=== PATIENT | female | born 1950 | race Caucasian/White ===

== ENCOUNTER 2023-12-25 15:00 | Inpatient (IN) | payer SELFPAY ==
--- NOTE | ~2023-12-25 | XR_ITS ---
EXAMINATION: XR FOOT, LEFT CLINICAL INFORMATION: Pain after a fall COMPARISON: None available. TECHNIQUE: 2 views of the left foot. FINDINGS: The bones and soft tissues are normal. No fracture. Alignment is anatomic. Joint spaces are maintained. XR/XR foot LT min 3V IMPRESSION: Normal left foot.
--- NOTE | ~2023-12-25 | XR_ITS ---
EXAMINATION: XR KNEE, LEFT CLINICAL INFORMATION: History of knee pain, fall. Fracture ? COMPARISON: None available. TECHNIQUE: Four views of the left knee. FINDINGS: Alignment is normal at the tibiofemoral compartments and joint spaces are maintained. There is an acute, comminuted fracture in the middle third of the patella and approximately 0.7 cm of distraction between the upper and lower pole fragments. Peripatellar soft tissues are swollen. Trace amount of fluid is present in the suprapatellar compartment of the knee joint. XR/XR knee LT 4V IMPRESSION: Acute comminuted, distracted fracture of the patella.
--- NOTE | ~2023-12-25 | XR_ITS ---
EXAMINATION: XR SHOULDER, RIGHT CLINICAL INFORMATION: Shoulder pain after fall COMPARISON: None available. TECHNIQUE: Two views of the right shoulder. FINDINGS: The clavicle and acromioclavicular joint are normal. An acute fracture through the region of the surgical neck of the humerus is mildly displaced. There is approximately 0.5 cm anteromedial displacement of the humeral shaft fragment compared to the head fragment. The humeral head fragment remains in normal articulation with the glenoid. There is mild anterior apex angulation at the humeral neck fracture site. The visualized right-sided ribs are intact. No pneumothorax or pleural effusion. XR/XR shoulder RT min 2V IMPRESSION: Mildly displaced fracture of the surgical neck of the humerus.
--- NOTE | ~2023-12-25 | FL_ITS ---
EXAMINATION: XR FLUOROSCOPY WITH IMAGES CLINICAL INFORMATION: ORIF left patella. COMPARISON: Left knee radiographs dated 01/05/2024. TECHNIQUE: Fluoroscopy Supervised By: Dr. Mickey Reyes. Fluoroscopy Time: 0.4 minutes. Cumulative Dose: 1.76 mGy. DAP: 0.0306 Gycm2. Images: 2. FINDINGS: The submitted images show 2 K wires transfixing the comminuted patellar fracture. FL/FL guidance in OR IMPRESSION: Intraoperative fluoroscopic guidance is provided during left patellar ORIF. Please see the patient's Operative Report for full procedural details.
[2023-12-25 15:16] VITALS: BP 131/74; PULSE 78; RESP 16; TEMP 36.2; O2SAT 95; BMI 26.0
--- NOTE | 2023-12-25 15:21 | ED_ITS ---
HPI - General Adult General Chief complaint: Fall Stated complaint: Fall today - knee & shoulder injury Time Seen by Provider: 12/25/23 17:39 Source: patient and family Mode of arrival: ambulatory Limitations: no limitations History of Present Illness HPI narrative: 73-year-old female with no medical history on no medications presents to the ER for evaluation of left knee pain and right shoulder pain after she tripped and fell just prior to arrival. She has been unable to bear weight on her left leg since the fall due to pain in the knee. she put her right hand out to catch herself, sustaining abrasions to the right palm and falling onto the right shoulder. She has had severe pain in the right shoulder with limited range of motion and severe pain in the left knee unable to bear weight or bend it. She did not hit her head or lose consciousness. She has not on any anticoagulation. No chest pain, abdominal pain. No preceding dizziness or other symptoms prior to the fall MD complaint: Left knee pain and right shoulder pain status post fall Onset (ago): hour(s) Location: left, right, upper extremity and lower extremity Radiation: non-radiation Severity: severe Quality: aching Pain Consistency: constant Relieving factors: immobilization Exacerbating factors: movement Associated symptoms: denies other symptoms Treatments prior to arrival: none Related Data Allergies Allergy/AdvReac Type Severity Reaction Status Date / Time Penicillins AdvReac Dizziness Verified 12/25/23 15:19 Review of Systems 2 Review of Systems: Yes all other systems are reviewed and are negative [facility] Social History Social History Household Members: Significant Other Housing: Apartment Do you presently have visiting nurse or other home services: No Alcohol intake: current Alcohol intake frequency: 0-2 drinks per day Alcohol type: beer and hard liquor Patient Tobacco Use Status: Former Tobacco user Quit Date: 4 years ago Tobacco use type: Cigarette e-Cigarette/Vaping Use: Former Use Physical Exam ED Vital Signs: Vital Signs - 24 hr 12/25/23 15:16 12/25/23 19:26 Temperature 97.2 F 97.9 F Pulse Rate 78 71 Respiratory Rate 16 18 Blood Pressure 131/74 150/79 H Pulse Oximetry 95 98 Oxygen Delivery Method Room Air Room Air BMI result Body Mass Index 26.0 Appearance: Alert. Oriented X3. No acute distress. Head: normocephalic, atraumatic. Eyes: Pupils equal, round and reactive to light. ENT: Pharynx normal. No tonsillar swelling or exudate. Neck: Normal inspection. Neck supple. CVS: Normal heart rate and rhythm. Pulses normal. Respiratory: No respiratory distress. Breath sounds normal. Abdomen: Soft and nontender. +BS x4 Skin: Skin warm and dry. Normal skin color. Normal skin turgor. No rashes. Extremities: left knee with moderate swelling, high-riding patella with exquisite tenderness. defect in the inferior aspect of the patella. Unable to fully extend the leg or lift it off of the stretcher. Tenderness of the left great toe. Left foot is warm and well perfused with 2+ DP pulse. Right arm held in flexion and adduction. Proximal humerus tender. Limited range of motion of the right shoulder. 2+ radial pulse, neurovascularly intact. Neuro/psych: Oriented X 3. nonfocal. Course Course Course Narrative: RME: 73-year-old female presents to ED for right shoulder and left knee pain. Patient states she tripped and fell on the sidewalk. Patient denies hitting head or loss of consciousness. Physical exam positive for right shoulder tenderness and left knee swelling. X-rays ordered Medications Administered Generic Name Dose Route Start Last Admin Trade Name Freq PRN Reason Stop Dose Admin Acetaminophen 650 mg 12/25/23 20:38 12/28/23 07:06 Acetaminophen 325 Mg Tablet PO 650 mg Q6H PRN Administration Pain, Mild (Pain Scale 1-3) Morphine Sulfate 4 mg 12/25/23 21:09 12/26/23 07:48 Morphine Sulfate 4 Mg/Ml Cartridge IVPUSH 4 mg Q4H PRN Administration Pain, Severe (Pain Scale 7-10) Protocol Ondansetron HCl 4 mg 12/25/23 20:38 12/26/23 07:48 Ondansetron Hcl 4 Mg/2 Ml Vial IVPUSH 4 mg Q8H PRN Administration Nausea and Vomiting Sodium Chloride 3 ml 12/26/23 00:00 12/28/23 07:07 0.9 % Sodium Chloride Flush 3 Ml Syringe IVFLUSH 3 ml QSHIFT [place] Administration Discontinued Medications Generic Name Dose Route Start Last Admin Trade Name Freq PRN Reason Stop Dose Admin Acetaminophen 975 mg 12/25/23 18:27 12/25/23 19:08 Acetaminophen 325 Mg Tablet PO 12/25/23 18:28 975 mg ONCE ONE Administration Acetaminophen 1,000 mg in 100 mls @ 400 mls/hr 12/26/23 10:16 12/26/23 11:31 Ofirmev IV 12/26/23 10:30 Infused ONCE ONE Infusion Morphine Sulfate 4 mg 12/25/23 20:06 12/25/23 21:42 Morphine Sulfate 4 Mg/Ml Cartridge IVPUSH 12/25/23 20:07 4 mg ONCE ONE Administration Protocol Medical Decision Making Medical Decision Making [facility] Narrative: 73-year-old female with no medical history presents to the ER for evaluation of left knee pain and right shoulder pain after she had a mechanical fall. She tripped and fell onto her right shoulder and directly onto the left knee. Imaging performed which is showing a fracture of the left patella and right humeral neck. Awaiting official read from the radiologist. Images were sent to Orthopedics who is recommending medical admission for polytrauma. Plan for surgical intervention. She will need clearance for the operating room. Lab workup ordered. Will place patient and sling and knee immobilizer in the meantime. Signed out to Katelyn MORGAN who will f/u imaging and final dispo for admission. Differential Diagnosis Differential Diagnoses: The differential diagnosis associated with the presentation includes Shoulder dislocation, humerus fracture, scapular fracture, clavicular fracture, AC joint sprain / separation. Patellar fracture, tibial plateau fracture, distal femur fracture, knee sprain, knee strain, compartment syndrome Admission/Observation Consideration of admission/observation: Escalation of care including admission/observation considered will require surgical intervention Consult Healthcare Provider Management of the patient was discussed with: [employer] Inspector Mattie from orthopedics recommending admission to the hospital for polytrauma, admission to medicine service with plan for surgical intervention early next week once swelling has improved. Lab Data [facility] Lab Attestation statement: I reviewed the patient's lab results. 12/26/23 05:19 12/26/23 05:19 Labs: Lab Results 12/25/23 Range/Units 18:54 WBC 10.7 (4.8-10.8) X10*3/uL RBC 4.46 (4.20-5.50) X10*6/uL Hgb 13.2 (12.0-16.0) g/dl Hct 42.5 (37.0-47.0) % MCV 95.3 (80.0-98.0) fL MCH 29.6 (27.0-33.0) pg MCHC 31.1 (31.0-35.0) g/dl RDW 14.3 (11.0-16.0) % Plt Count 226 (160-400) X10*3/uL MPV 11.7 (9.4-12.3) fL Immature Gran % (Auto) 0.7 H (0.0-0.4) % Neut % (Auto) 77.1 H (45-73) % Lymph % (Auto) 14.5 L (20-40) % [place] % (Auto) 5.8 (2-11) % Eos % (Auto) 0.8 (0-4) % Baso % (Auto) 1.1 (0-2) % Lymph # (Auto) 1.6 (1.2-4.9) X10*3/uL [place] # (Auto) 0.6 (0.1-1.2) X10*3/uL Eos # (Auto) 0.1 (0.0-0.4) X10*3/uL Baso # (Auto) 0.1 (0.0-0.2) X10*3/uL Abs Immat Gran (auto) 0.07 H (0.00-0.03) X10*3/uL Absolute Neuts (auto) 8.3 (2.0-8.3) x10*3/uL Absolute Nucleated RBC 0.000 (0.0-0.012) X10*3/uL Nucleated RBC % (auto) 0.0 (0.0-0.2) /100WBC Smear Tech's Comments VERIFIED Sodium 143 (135-145) mmol/L Potassium 4.0 (3.3-5.1) mmol/L Chloride 110 H (96-108) mmol/L Carbon Dioxide 18 L (22-29) mmol/L Anion Gap 19 (12-20) BUN 15 (9-16) mg/dL Creatinine 0.81 (0.5-1.4) mg/dL Estim Creat Clear Calc 61.9 Estimated GFR > 60 Random Glucose 114 (60-115) mg/dL Calcium 10.3 H (8.4-10.2) mg/dL Magnesium 2.3 (1.6-2.6) mg/dL Total Bilirubin 0.3 (0.0-1.0) mg/dL Direct Bilirubin 0.1 (0.0-0.5) mg/dL AST 18 (5-31) U/L ALT 16 (0-31) U/L Alkaline Phosphatase 70 (39-117) U/L Total Protein 7.4 (6.5-8.0) g/dL Albumin 4.4 (3.5-5.0) g/dL Independent Interpretation I performed an independent interpretation of an: Plain X-Ray Interpretation: X-ray of the knee with significant transverse patellar fracture, right humeral neck fracture. Independent Historian Clinical information obtained from an independent historian. History obtained from or confirmed by: Spouse Prescription Management I considered prescription management with: Pain Medication Social Determinants Patient?s care significantly limited by Social Determinants of Health including: Other Social Determinant of Health ( Patient lives in [place]) Critical Care Time Critical Care Time Critical Care Time: Yes Total Critical Care Time: 31 Attestation: I have personally provided critical care time exclusive of time spent on separately billable procedures. Time includes review of lab data, radiology results, discussion with consultants, and monitoring for potential decompensation. Intervention performed as documented. Discharge Plan Discharge Clinical Impression: Patellar fracture Qualifiers: Encounter type: initial encounter Fracture type: closed Fracture morphology: t ransverse Fracture alignment: displaced Laterality: left Qualified Code(s): S 82.032A - Displaced transverse fracture of left patella, initial encounter for closed fracture Fracture, humerus Qualifiers: Encounter type: initial encounter Humerus Location: proximal Fracture type: c losed Patient Disposition: Admitted As Inpatient Interventions: Admission Worksheet (ED) Last Done: 12/26/23 14:06 Discharge Date/Time: 12/26/23 15:40
[2023-12-25] MEDS: Acetaminophen 325 MG TABLET 975 MG PO (19:08)
[2023-12-25 19:26] VITALS: BP 150/79; PULSE 71; RESP 18; TEMP 36.6; O2SAT 98
[2023-12-25 19:32] LABS: Alanine Aminotransferase 16 U/L (0-31); Albumin Level 4.4 g/dL (3.5-5.0); Alkaline Phosphatase 70 U/L (39-117); Anion Gap 19 (12-20); Aspartate Amino Transferase 18 U/L (5-31); Bilirubin Direct 0.1 mg/dL (0.0-0.5); Bilirubin Total 0.3 mg/dL (0.0-1.0); Blood Urea Nitrogen 15 mg/dL (9-16); Calcium 10.3 mg/dL (8.4-10.2); Carbon Dioxide 18 mmol/L (22-29); Chloride 110 mmol/L (96-108); Creatinine Clr Calc Pharmacy 61.9; Estimated Glomerular Filt Rate > 60; Glucose Random 114 mg/dL (60-115); Magnesium 2.3 mg/dL (1.6-2.6); Sodium 143 mmol/L (135-145); Total Protein 7.4 g/dL (6.5-8.0)
[2023-12-25 19:43] LABS: Basophils Absolute Auto 0.1 X10*3/uL (0.0-0.2); Basophils Percent Auto 1.1 % (0-2); Eosinophils Absolute Auto 0.1 X10*3/uL (0.0-0.4); Eosinophils Percent Auto 0.8 % (0-4); Hematocrit 42.5 % (37.0-47.0); Hemoglobin 13.2 g/dl (12.0-16.0); Imm Gran Abs Auto 0.07 X10*3/uL (0.00-0.03); Imm Gran Pct Auto 0.7 % (0.0-0.4); Lymphocytes Absolute Auto 1.6 X10*3/uL (1.2-4.9); Lymphocytes Percent Auto 14.5 % (20-40); MANUAL DIFF FLAG SCAN; Mean Corpuscular HGB Conc 31.1 g/dl (31.0-35.0); Mean Corpuscular Hemoglobin 29.6 pg (27.0-33.0); Mean Corpuscular Volume 95.3 fL (80.0-98.0); Mean Platelet Volume 11.7 fL (9.4-12.3); Monocytes Absolute Auto 0.6 X10*3/uL (0.1-1.2); Monocytes Percent Auto 5.8 % (2-11); Neutrophils Absolute Auto 8.3 x10*3/uL (2.0-8.3); Neutrophils Percent Auto 77.1 % (45-73); PLT CLUMP 1; Red Blood Count 4.46 X10*6/uL (4.20-5.50); Red Cell Distribution Width 14.3 % (11.0-16.0); SCAN SMEAR FLAG 1
[2023-12-25 19:45] LABS: Platelet Count 226 X10*3/uL (160-400); White Blood Count 10.7 X10*3/uL (4.8-10.8)
[2023-12-25 20:05] LABS: SLIDE REVIEW VERIFIED
--- NOTE | 2023-12-25 20:19 | MHC.EDTECH ---
This tech took over care of patient,at 1900 hourly rounds completed,patient was undressed,and placed in hospital attire,Belongings list completed and copy placed in chart
--- NOTE | 2023-12-25 20:39 | P.HPHOSP_ITS ---
History of Present Illness Date of Service: 12/25/23 Chief Complaint: Fall This is a 73-year-old female with no pertinent past medical history and not on prescription medications who presents to the emergency department for evaluation after a fall. Patient states she was walking on the sidewalk when she tripped and fell. Patient thinks that her foot got stuck into something and hence she tripped and fell. Did not lose consciousness prior to the fall. No chest discomfort or palpitations. No rhythmic jerking movement of extremities. No head strike. Patient fell on her left lower extremity and used her right upper extremity to stabilize before fall. Reports painful movement of right upper extremity and painful knee movement since the fall. No fever, chills, chest discomfort, palpitations, shortness of breath, abdominal pain, changes in urinary or bowel habits. In the emergency department, imaging with mildly displaced fracture of the surgical neck of humerus and acute comminuted distracted fracture of the patella Review of Systems 2 Constitutional: Constitutional: Reports no additional constitutional complaints Cardiovascular: Cardiovascular: Reports no additional cardiovascular complaints Respiratory: Respiratory: Reports no additional respiratory complaints Gastrointestinal: Gastrointestinal: Reports no additional gastrointestinal complaints Genitourinary: Genitourinary: Reports no additional female genitourinary complaints Musculoskeletal: Musculoskeletal: Reports arthralgias and Reports joint swelling PMFSH Pertinent family history: No family history of early CAD Social History Alcohol intake: current Alcohol intake frequency: 0-2 drinks per day Alcohol type: beer and hard liquor Meds Allergies Allergy/AdvReac Type Severity Reaction Status Date / Time Penicillins AdvReac Dizziness Verified 12/25/23 15:19 Physical Exam 2 Vital Signs and Narrative: Vital Signs: Last Vital Signs Temp 97.9 F 12/25/23 19:26 Pulse 71 12/25/23 19:26 Resp 18 12/25/23 19:26 BP 150/79 H 12/25/23 19:26 Pulse Ox 98 12/25/23 19:26 O2 Del Method Room Air 12/25/23 19:26 BMI result Body Mass Index 26.0 Middle-aged female lying in bed in no distress Neck supple, no JVD Regular rate and rhythm, S1-S2 heard Regular breath sounds bilaterally, no wheezing or crackles appreciated Abdomen soft nontender, no guarding, no rigidity Patient is awake, alert and oriented to self, place, time and person ; no focal motor deficit Psych: Normal mood Right upper extremity in sling Results Labs 12/25/23 18:54 12/25/23 18:54 Labs: Laboratory Results - last 24 hr 12/25/23 18:54 MCV 95.3 MCH 29.6 MCHC 31.1 RDW 14.3 Plt Count 226 MPV 11.7 Immature Gran % (Auto) 0.7 H Neut % (Auto) 77.1 H Lymph % (Auto) 14.5 L [place] % (Auto) 5.8 Eos % (Auto) 0.8 Baso % (Auto) 1.1 Lymph # (Auto) 1.6 [place] # (Auto) 0.6 Eos # (Auto) 0.1 Baso # (Auto) 0.1 Abs Immat Gran (auto) 0.07 H Absolute Neuts (auto) 8.3 Absolute Nucleated RBC 0.000 Nucleated RBC % (auto) 0.0 Smear Tech's Comments VERIFIED Anion Gap 19 Estim Creat Clear Calc 61.9 Estimated GFR > 60 Random Glucose 114 Calcium 10.3 H Magnesium 2.3 Total Bilirubin 0.3 Direct Bilirubin 0.1 AST 18 ALT 16 Alkaline Phosphatase 70 Total Protein 7.4 Albumin 4.4 Assessment and Plan (1) Fracture, humerus: Qualifiers: Encounter type: initial encounter Fracture type: closed Humerus Location: proximal Status: Acute (2) Patellar fracture: Qualifiers: Encounter type: initial encounter Fracture alignment: displaced F racture morphology: transverse Fracture type: closed Laterality: left Q ualified Code(s): S82.032A - Displaced transverse fracture of left patella, initial encounter for closed fracture Status: Acute Plan This is a 73-year-old female with no pertinent past medical history and not on prescription medications who presents to the emergency department for evaluation after a fall. #. Acute comminuted fracture of the patella and displaced fracture of the surgical neck of humerus due to mechanical fall: IV opioids p.r.n. for analgesia. Consulting Orthopedic surgery #. Preoperative risk: RCRI score 0 DVT prophylaxis: Mechanical Full code Admit as inpatient and will require two night minimum hospital stay for evaluation of patellar and humerus fracture (as above), which is not possible in a lesser acute setting. Specialist consult pending Quality Stroke Does the patient have a stroke diagnosis?: No VTE Prior VTE?: No VTE Risk Level:: Medical - moderate - high VTE Device Contraindication: N/A - Device Ordered VTE Drug Contraindication: Treatment Not Tolerated
--- NOTE | 2023-12-25 21:39 | MHC.CM.ED ---
Addendum entered by Beronica Beatty 12/25/23 22:11: According to OHIP website from [place], patient will need an itemized bill and medical records to submit to her insurance company. Original Note: CM met with admitted patient with bed assignment pending. Pt is a [place] Citizen. She lives in [facility] [place] and [place] in the [facility]. Pt's significant other is from [place] and they were visiting family when patient tripped and feel. She has a fx L patella and R humeral head fx. She will require surgical intervention. She has OHIP insurance from [employer] She has emergency services coverage for out of the country care. Reviewed website with patient regarding emergency inpatient services covered and how to get reimbursed for payments made. Explained to patient that referral to Financial services will be made. Pt lives with her S.O. Gonsalo Dahl ([phone]). Pt has negative medical hx and takes no mediations. D/C plan is unsure at this time pending ortho recommendations. Pt would like to be able to go home to [place] and have any needed rehab there. Patient states she does not have an equivalent of our HCP in [place], but if she cannot speak for herself, she would have her S.O. Gonsalo Dahl speak for her. CM is unsure at this time if a [place] HCP can be made if one is not a citizen of this country. Will e-mail Leann Shaw and CM can complete a HCP while patient is inpatient if legally able. Patient has plane tickets booked to return to [place] on January 16. CM will follow for discharge planning.
[2023-12-25 21:42] VITALS: RESP 18
[2023-12-25] MEDS: Morphine Sulfate 4 MG/ML CARTRIDGE IVPUSH (21:42)
[2023-12-25 23:03] VITALS: BP 102/55; PULSE 64; RESP 16; TEMP 36.1; O2SAT 94
--- NOTE | 2023-12-26 | ECG_ITS ---
Test Reason : PRESURGERY EVAL Blood Pressure : / mmHG Vent. Rate : 070 BPM Atrial Rate : 070 BPM P-R Int : 122 ms QRS Dur : 080 ms QT Int : 412 ms P-R-T Axes : 064 091 036 degrees QTc Int : 444 ms Normal sinus rhythm Rightward axis Borderline ECG No previous ECGs available Referred By: Bryant Anderson Electronically Signed By:Titi Rincon
[2023-12-26] MEDS: 0.9 % Sodium Chloride Flush 3 ML SYRINGE IVFLUSH ×4 (02:45→21:30)
[2023-12-26] MEDS: Acetaminophen 325 MG TABLET 650 MG PO ×2 (03:02→21:25)
--- NOTE | 2023-12-26 03:02 | PC.NURSE ---
This RN offered patient morphine 4 mg IV push for 7/10 pain in right shoulder and left knee, patient refused requesting Tylenol 650 mg PO.
[2023-12-26 05:34] LABS: MANUAL DIFF FLAG NO
[2023-12-26 05:43] LABS: Basophils Absolute Auto 0.1 X10*3/uL (0.0-0.2); Basophils Percent Auto 0.8 % (0-2); Eosinophils Absolute Auto 0.1 X10*3/uL (0.0-0.4); Eosinophils Percent Auto 1.3 % (0-4); Hematocrit 34.3 % (37.0-47.0); Hemoglobin 11.1 g/dl (12.0-16.0); Imm Gran Abs Auto 0.04 X10*3/uL (0.00-0.03); Imm Gran Pct Auto 0.5 % (0.0-0.4); Lymphocytes Absolute Auto 1.9 X10*3/uL (1.2-4.9); Lymphocytes Percent Auto 25.3 % (20-40); Mean Corpuscular HGB Conc 32.4 g/dl (31.0-35.0); Mean Corpuscular Hemoglobin 29.8 pg (27.0-33.0); Mean Platelet Volume 10.8 fL (9.4-12.3); Monocytes Absolute Auto 0.8 X10*3/uL (0.1-1.2); Monocytes Percent Auto 10.3 % (2-11); Neutrophils Absolute Auto 4.7 x10*3/uL (2.0-8.3); Neutrophils Percent Auto 61.8 % (45-73); Platelet Count 234 X10*3/uL (160-400); Red Blood Count 3.73 X10*6/uL (4.20-5.50); Red Cell Distribution Width 14.5 % (11.0-16.0); White Blood Count 7.6 X10*3/uL (4.8-10.8)
[2023-12-26 06:09] LABS: Anion Gap 15 (12-20); Blood Urea Nitrogen 13 mg/dL (9-16); Carbon Dioxide 22 mmol/L (22-29); Chloride 108 mmol/L (96-108); Creatinine Clr Calc Pharmacy 69.6; Estimated Glomerular Filt Rate > 60; Glucose Random 114 mg/dL (60-115); Potassium 4.1 mmol/L (3.3-5.1); Sodium 141 mmol/L (135-145)
[2023-12-26 06:46] VITALS: BP 117/67; PULSE 74; RESP 14; TEMP 36.9; O2SAT 92
[2023-12-26] MEDS: ondansetron HCL 4 MG/2 ML VIAL IVPUSH (07:48)
[2023-12-26] MEDS: Morphine Sulfate 4 MG/ML CARTRIDGE IVPUSH (07:48)
--- NOTE | 2023-12-26 07:54 | PC.NURSE ---
patient a&ox3, c/o 10/10 knee/arm pain, + csm/pulses, pt medicated for pain, ortho service at bedside discussing surgery for knee. spoke with ortho service about getting IV ofirmev for pain as patient doesnt like morphine. pure wick intact, vitals previously stable, call blunt within reach, will continue to monitor
--- NOTE | 2023-12-26 08:06 | PM.CNOR ---
History of Present Illness HPI Consult date: 12/26/23 Chief complaint: Mechanical Fall Narrative: Ms. Cortez is a 73 yo female with no significant PMH, from [place] presented to the ED after sustaining a mechanical fall. She is here visiting her partner and they were out on a walk, she was wearing flip flops and tripped and fell. Upon presented to the ED x-rays were obtained of the right shoulder and left knee. She was found to have a right proximal humerus fracture and the x-rays of the left knee revealed a displaced patella fracture. She was placed in a sling for the proximal humerus fx and and a knee immobilizer for the patella fx. She was admitted to the medicine service with orthopedic consult. Review of Systems Review of Systems: Yes all other systems are reviewed and are negative PMFSH Social History Social History Alcohol intake: current Alcohol intake frequency: 0-2 drinks per day Alcohol type: beer and hard liquor Smoked in Last 30 Days: No Use of substances other than those prescribed or required for medical reasons: No Advance Directives: No Advance Directives Information Provided: No Meds Allergies Allergy/AdvReac Type Severity Reaction Status Date / Time Penicillins AdvReac Dizziness Verified 12/25/23 15:19 Active Medications: Current Medications Acetaminophen (Acetaminophen 325 Mg Tablet) 650 mg PO Q6H PRN PRN Reason: Pain, Mild (Pain Scale 1-3) Last Admin: 12/26/23 03:02 Dose: 650 mg Melatonin (Melatonin 3 Mg Tablet) 6 mg PO BEDTIME PRN PRN Reason: Insomnia Morphine Sulfate (Morphine Sulfate 4 Mg/Ml Cartridge) 4 mg IVPUSH Q4H PRN; Protocol PRN Reason: Pain, Severe (Pain Scale 7-10) Last Admin: 12/26/23 07:48 Dose: 4 mg Ondansetron HCl (Ondansetron Hcl 4 Mg/2 Ml Vial) 4 mg IVPUSH Q8H PRN PRN Reason: Nausea and Vomiting Last Admin: 12/26/23 07:48 Dose: 4 mg Sodium Chloride (0.9 % Sodium Chloride Flush 3 Ml Syringe) [facility] Last Admin: 12/26/23 07:39 Dose: 3 ml Physical Exam Vital Signs: Vital Signs: Last Vital Signs Temp 98.4 F 12/26/23 06:46 Pulse 74 12/26/23 06:46 Resp 14 12/26/23 06:46 BP 117/67 12/26/23 06:46 Pulse Ox 92 12/26/23 06:46 O2 Del Method Room Air 12/26/23 06:46 BMI result Body Mass Index 26.0 Const: General: cooperative, healthy appearing and no acute distress Resp: Effort & Inspection: normal respiratory effort and able to speak in complete sentences Cardio: Rate: regular rate Peripheral pulses: Peripheral pulses 2+ throughout GI: Palpation (GI): Soft to palpation Skin: Lesions: no lesions Rashes: no rashes Extrem: Other: RUE: Edema RUE able to flex and extend all digist and the wrist. Deltoid sensation intact. LLE: Large effusion. Able to dorsi/plantar flex. Sensation intact. Pedal pulse intact. Results Labs 12/26/23 05:19 12/26/23 05:19 Labs: Abnormal lab results 12/25/23 12/26/23 Range/Units 18:54 05:19 RBC 3.73 L (4.20-5.50) X10*6/uL Hgb 11.1 L (12.0-16.0) g/dl Hct 34.3 L (37.0-47.0) % Immature Gran % (Auto) 0.7 H 0.5 H (0.0-0.4) % Neut % (Auto) 77.1 H (45-73) % Lymph % (Auto) 14.5 L (20-40) % Abs Immat Gran (auto) 0.07 H 0.04 H (0.00-0.03) X10*3/uL Chloride 110 H (96-108) mmol/L Carbon Dioxide 18 L (22-29) mmol/L Calcium 10.3 H (8.4-10.2) mg/dL H & H 12/25/23 12/26/23 Range/Units 18:54 05:19 Hgb 13.2 11.1 L (12.0-16.0) g/dl Hct 42.5 34.3 L (37.0-47.0) % All other labs normal. Assessment and Plan (1) Fracture, humerus: Qualifiers: Encounter type: initial encounter Fracture type: closed Humerus Location: proximal Status: Acute Sling Gentle ROM at the elbow hand and wrist (2) Patellar fracture: Qualifiers: Encounter type: initial encounter Fracture alignment: displaced Fracture morphology: transverse Fracture type: closed Laterality: left Qualified Code(s): S82.032A - Displaced transverse fracture of left patella, initial encounter for closed fracture Status: Acute I discussed the case with Dr. Reyes and explained the extent of the injury to the patient and options available which include surgical intervention. I explained the procedure in detail along with the length of recovery and rehab course. I explained the risk, benefits and alternatives. Risk including, but not limited to infection, blood clots, bleeding, non union or malunion and nerve/tissue damage to surrounding areas. I answered all their questions and with their understanding they have consented to move forward with Operative Fixation of the left knee. Surgical planning is pending based on the amount of swelling. This morning, the patient has a moderate amount of swelling, OR not advised for today. Procedures Date of Service Date of Service: 12/26/23
[2023-12-26 08:49] VITALS: BP 113/65; PULSE 74; RESP 16; TEMP 36.6; O2SAT 94
--- NOTE | 2023-12-26 09:23 | PHA.MEDREC ---
Pharmacy Consult ? Medication Reconciliation Pharmacy has completed the medication reconciliation. Spoke to patient, she confirms that she's not on any medication at home.
[2023-12-26] MEDS: Acetaminophen 1,000 MG/100 ML PIGGYBACK 400 MG IV (10:31)
--- NOTE | 2023-12-26 11:00 | HO.PM.IMPN ---
Subjective Subjective Date of Service: 12/26/23 Interval History: right shoulder, left knee pain Physical Exam Vital Signs: Vital Signs: Last Vital Signs Temp 97.9 F 12/26/23 08:49 Pulse 74 12/26/23 08:49 Resp 16 12/26/23 08:49 BP 113/65 12/26/23 08:49 Pulse Ox 94 12/26/23 08:49 O2 Del Method Room Air 12/26/23 08:49 BMI result Body Mass Index 26.0 Const: General: cooperative, healthy appearing and no acute distress Resp: Effort & Inspection: normal respiratory effort and able to speak in complete sentences Cardio: Rate: regular rate Peripheral pulses: Peripheral pulses 2+ throughout GI: Palpation (GI): Soft to palpation Skin: Lesions: no lesions Rashes: no rashes Extrem: Other: RUE: Edema RUE able to flex and extend all digist and the wrist. Deltoid sensation intact. LLE: Large effusion. Able to dorsi/plantar flex. Sensation intact. Pedal pulse intact. Objective Data Active Medications Acetaminophen (Acetaminophen 325 Mg Tablet) 650 mg PO Q6H PRN PRN Reason: Pain, Mild (Pain Scale 1-3) Last Admin: 12/26/23 03:02 Dose: 650 mg Documented By: EMILEE Melatonin (Melatonin 3 Mg Tablet) 6 mg PO BEDTIME PRN PRN Reason: Insomnia Morphine Sulfate (Morphine Sulfate 4 Mg/Ml Cartridge) 4 mg IVPUSH Q4H PRN; Protocol PRN Reason: Pain, Severe (Pain Scale 7-10) Last Admin: 12/26/23 07:48 Dose: 4 mg Documented By: DILMA Ondansetron HCl (Ondansetron Hcl 4 Mg/2 Ml Vial) 4 mg IVPUSH Q8H PRN PRN Reason: Nausea and Vomiting Last Admin: 12/26/23 07:48 Dose: 4 mg Documented By: DILMA Sodium Chloride (0.9 % Sodium Chloride Flush 3 Ml Syringe) [address] [facility] Last Admin: 12/26/23 07:39 Dose: 3 ml Documented By: DILMA Labs 12/26/23 05:19 12/26/23 05:19 Labs: Laboratory Results - last 24 hr 12/25/23 12/26/23 18:54 05:19 MCV 95.3 92.0 MCH 29.6 29.8 MCHC 31.1 32.4 RDW 14.3 14.5 Plt Count 226 234 MPV 11.7 10.8 Immature Gran % (Auto) 0.7 H 0.5 H Neut % (Auto) 77.1 H 61.8 Lymph % (Auto) 14.5 L 25.3 Walker % (Auto) 5.8 10.3 Eos % (Auto) 0.8 1.3 Baso % (Auto) 1.1 0.8 Lymph # (Auto) 1.6 1.9 Walker # (Auto) 0.6 0.8 Eos # (Auto) 0.1 0.1 Baso # (Auto) 0.1 0.1 Abs Immat Gran (auto) 0.07 H 0.04 H Absolute Neuts (auto) 8.3 4.7 Absolute Nucleated RBC 0.000 0.000 Nucleated RBC % (auto) 0.0 0.0 Smear Tech's Comments VERIFIED Anion Gap 19 15 Estim Creat Clear Calc 61.9 69.6 Estimated GFR > 60 > 60 Random Glucose 114 114 Calcium 10.3 H 9.0 D Magnesium 2.3 Total Bilirubin 0.3 Direct Bilirubin 0.1 AST 18 ALT 16 Alkaline Phosphatase 70 Total Protein 7.4 Albumin 4.4 Assessment and Plan (1) Fracture, humerus: Status: Acute Plan 73F no significant pmh presented with mechanical fall complicated by right humerus fracture and left patellar fracture Mechanical fall complicated by acute comminuted fracture of the left patella and displaced fracture of the surgical neck of the right humerus Plan for eventual surgery once swelling decreases Benefits of surgery outweigh risks would proceed as planned, we will obtain preop EKG DVT prophylaxis mechanical due to planned surgery Full code reason for continued hospitalization: Surgery pending Quality Stroke Does the patient have a stroke diagnosis?: No VTE Prior VTE?: No VTE Risk Level:: Medical - moderate - high VTE Device Contraindication: N/A - Device Ordered VTE Drug Contraindication: Treatment Not Tolerated
--- NOTE | 2023-12-26 13:11 | MHC.CM.PN ---
EMR REVIEWED, CM MET W/PT TO DISCUSS PLAN, PT REPORTS SHE IS STAYING W/S.O[facility]S BROTHER AT [address] [facility] [place] AND LOCAL CONTACT#[phone], PT REPORTS PLAN IS FOR SURGERY FRI/ AND PT IS HOPING TO DC BACK TO S.O[facility]S BROTHERS HOME AND THEN RETURN TO [facility] ON January, PT WILL LOOK INTO REHAB ONCE [facility] IN [facility]. NO PLAN FOR DC OVER WEEKEND, PT AWARE PT/OT WILL SEE HER PRIOR TO DC AND THEY CAN TEACH HER EXERCISES/POINTERS FOR MANAGING AT HOME.
[2023-12-26 15:47] VITALS: BP 121/69; PULSE 70; RESP 18; TEMP 37.2; O2SAT 91
[2023-12-26 15:58] VITALS: BP 141/78; PULSE 56; RESP 16; TEMP 36.7; O2SAT 96
[2023-12-26 17:31] VITALS: BMI 26.9
[2023-12-26 19:12] VITALS: BP 121/67; PULSE 85; RESP 18; TEMP 36.4; O2SAT 93
[2023-12-27 03:34] VITALS: BP 119/72; PULSE 75; RESP 16; TEMP 36.1; O2SAT 92
[2023-12-27] MEDS: Acetaminophen 325 MG TABLET 650 MG PO ×3 (07:52→22:47)
[2023-12-27] MEDS: 0.9 % Sodium Chloride Flush 3 ML SYRINGE IVFLUSH ×2 (07:54→15:45)
[2023-12-27 08:00] VITALS: BP 127/92; PULSE 77; RESP 12; TEMP 36.1; O2SAT 91
--- NOTE | 2023-12-27 09:07 | P.PNIM_ITS ---
Subjective Subjective Date of Service: 12/27/23 Interval History: pain manageable Physical Exam 2 Vital Signs: Vital Signs: Last Vital Signs Temp 97.0 F 12/27/23 08:00 Pulse 77 12/27/23 08:00 Resp 12 12/27/23 08:00 BP 127/92 H 12/27/23 08:00 Pulse Ox 91 L 12/27/23 08:00 O2 Del Method Room Air 12/27/23 08:00 BMI result Body Mass Index 26.9 Const: General: cooperative, healthy appearing and no acute distress Resp: Effort & Inspection: normal respiratory effort and able to speak in complete sentences Cardio: Rate: regular rate Peripheral pulses: Peripheral pulses 2+ throughout GI: Palpation (GI): Soft to palpation Skin: Lesions: no lesions Rashes: no rashes Extrem: Other: RUE: Edema RUE able to flex and extend all digist and the wrist. Deltoid sensation intact. LLE: Large effusion. Able to dorsi/plantar flex. Sensation intact. Pedal pulse intact. Objective Data Active Medications Acetaminophen (Acetaminophen 325 Mg Tablet) 650 mg PO Q6H PRN PRN Reason: Pain, Mild (Pain Scale 1-3) Last Admin: 12/27/23 07:52 Dose: 650 mg Documented By: DICK Melatonin (Melatonin 3 Mg Tablet) 6 mg PO BEDTIME PRN PRN Reason: Insomnia Morphine Sulfate (Morphine Sulfate 4 Mg/Ml Cartridge) 4 mg IVPUSH Q4H PRN; Protocol PRN Reason: Pain, Severe (Pain Scale 7-10) Last Admin: 12/26/23 07:48 Dose: 4 mg Documented By: DILMA Ondansetron HCl (Ondansetron Hcl 4 Mg/2 Ml Vial) 4 mg IVPUSH Q8H PRN PRN Reason: Nausea and Vomiting Last Admin: 12/26/23 07:48 Dose: 4 mg Documented By: DILMA Sodium Chloride (0.9 % Sodium Chloride Flush 3 Ml Syringe) [facility] Last Admin: 12/27/23 07:54 Dose: 3 ml Documented By: DICK Labs 12/26/23 05:19 12/26/23 05:19 Assessment and Plan (1) Fracture, humerus: Status: Acute Plan 73F no significant pmh presented with mechanical fall complicated by right humerus fracture and left patellar fracture Mechanical fall complicated by acute comminuted fracture of the left patella and displaced fracture of the surgical neck of the right humerus Plan for eventual surgery once swelling decreases Benefits of surgery outweigh risks would proceed as planned DVT prophylaxis mechanical due to planned surgery Full code reason for continued hospitalization: Surgery pending Quality Stroke Does the patient have a stroke diagnosis?: No VTE Prior VTE?: No VTE Risk Level:: Medical - moderate - high VTE Device Contraindication: N/A - Device Ordered VTE Drug Contraindication: Treatment Not Tolerated
--- NOTE | 2023-12-27 12:20 | PM.PNORT ---
Subjective Subjective Date of Service: 12/27/23 Interval history: Day 2 left knee patella fx has pain in the left knee right shoulder tolerating ok Physical Exam Vital Signs: Vital Signs: Last Vital Signs Temp 97.0 F 12/27/23 08:00 Pulse 77 12/27/23 08:00 Resp 12 12/27/23 08:00 BP 127/92 H 12/27/23 08:00 Pulse Ox 91 L 12/27/23 08:00 O2 Del Method Room Air 12/27/23 08:00 BMI result Body Mass Index 26.9 Const: General: cooperative, healthy appearing and no acute distress Resp: Effort & Inspection: normal respiratory effort and able to speak in complete sentences Cardio: Rate: regular rate Peripheral pulses: Peripheral pulses 2+ throughout GI: Palpation (GI): Soft to palpation Skin: Lesions: no lesions Rashes: no rashes Extrem: Other: RUE: Edema RUE able to flex and extend all digist and the wrist. Deltoid sensation intact. LLE: Large effusion. Able to dorsi/plantar flex. Sensation intact. Pedal pulse intact. Procedures Date of Service Date of Service: 12/27/23 Progress Note: A&P Assessment and plan (1) Fracture, humerus: Status: Acute Assessment and Plan: Sling elbow ROM wrist ROM no lifting out patient f/u (2) Patellar fracture: Status: Acute Assessment and Plan: BRace in ext elevate ankle rom ok pending surgery Time Spent With Patient Time: Total time managing care of this patient today ____ minutes. Quality Stroke Does the patient have a stroke diagnosis?: No VTE Prior VTE?: No VTE Risk Level:: Medical - moderate - high VTE Device Contraindication: N/A - Device Ordered VTE Drug Contraindication: Treatment Not Tolerated
[2023-12-27 15:48] VITALS: BP 130/74; PULSE 89; RESP 12; TEMP 36.6; O2SAT 91
[2023-12-27 20:00] VITALS: BP 126/74; PULSE 72; RESP 16; TEMP 36.1; O2SAT 92
[2023-12-28 03:22] VITALS: BP 125/63; PULSE 70; RESP 16; TEMP 35.5; O2SAT 90
[2023-12-28] MEDS: Acetaminophen 325 MG TABLET 650 MG PO ×3 (07:06→19:50)
[2023-12-28] MEDS: 0.9 % Sodium Chloride Flush 3 ML SYRINGE IVFLUSH ×2 (07:07→23:46)
[2023-12-28 07:32] VITALS: BP 151/70; PULSE 78; RESP 18; TEMP 36.4; O2SAT 92
--- NOTE | 2023-12-28 08:14 | P.PNIM_ITS ---
Subjective Subjective Date of Service: 12/28/23 Interval History: pain manageable Physical Exam 2 Vital Signs: Vital Signs: Last Vital Signs Temp 97.5 F 12/28/23 07:32 Pulse 78 12/28/23 07:32 Resp 18 12/28/23 07:32 BP 151/70 H 12/28/23 07:32 Pulse Ox 92 12/28/23 07:32 O2 Del Method Room Air 12/28/23 07:32 BMI result Body Mass Index 26.9 Const: General: cooperative, healthy appearing and no acute distress Resp: Effort & Inspection: normal respiratory effort and able to speak in complete sentences Cardio: Rate: regular rate Peripheral pulses: Peripheral pulses 2+ throughout GI: Palpation (GI): Soft to palpation Skin: Lesions: no lesions Rashes: no rashes Extrem: Other: RUE: Edema RUE able to flex and extend all digist and the wrist. Deltoid sensation intact. LLE: Large effusion. Able to dorsi/plantar flex. Sensation intact. Pedal pulse intact. Objective Data Active Medications Acetaminophen (Acetaminophen 325 Mg Tablet) 650 mg PO Q6H PRN PRN Reason: Pain, Mild (Pain Scale 1-3) Last Admin: 12/28/23 07:06 Dose: 650 mg Documented By: DICK Melatonin (Melatonin 3 Mg Tablet) 6 mg PO BEDTIME PRN PRN Reason: Insomnia Morphine Sulfate (Morphine Sulfate 4 Mg/Ml Cartridge) 4 mg IVPUSH Q4H PRN; Protocol PRN Reason: Pain, Severe (Pain Scale 7-10) Last Admin: 12/26/23 07:48 Dose: 4 mg Documented By: DILMA Ondansetron HCl (Ondansetron Hcl 4 Mg/2 Ml Vial) 4 mg IVPUSH Q8H PRN PRN Reason: Nausea and Vomiting Last Admin: 12/26/23 07:48 Dose: 4 mg Documented By: DILMA Sodium Chloride (0.9 % Sodium Chloride Flush 3 Ml Syringe) 3 [facility] Last Admin: 12/28/23 07:07 Dose: 3 ml Documented By: DICK Labs 12/26/23 05:19 12/26/23 05:19 Assessment and Plan (1) Fracture, humerus: Status: Acute Plan 73F no significant pmh presented with mechanical fall complicated by right humerus fracture and left patellar fracture Mechanical fall complicated by acute comminuted fracture of the left patella and displaced fracture of the surgical neck of the right humerus Plan for eventual surgery once swelling decreases Benefits of surgery outweigh risks would proceed as planned DVT prophylaxis mechanical due to planned surgery Full code reason for continued hospitalization: Surgery pending Quality Stroke Does the patient have a stroke diagnosis?: No VTE Prior VTE?: No VTE Risk Level:: Medical - moderate - high VTE Device Contraindication: N/A - Device Ordered VTE Drug Contraindication: Treatment Not Tolerated
[2023-12-28 15:34] VITALS: BP 134/75; PULSE 73; RESP 15; TEMP 36.6; O2SAT 92
[2023-12-28 19:46] VITALS: BP 127/72; PULSE 88; RESP 17; TEMP 36.7; O2SAT 94
[2023-12-29 03:43] VITALS: BP 125/68; PULSE 82; RESP 17; TEMP 36.1; O2SAT 94
[2023-12-29 07:17] VITALS: BP 123/84; PULSE 86; RESP 17; TEMP 36.6; O2SAT 94
[2023-12-29] MEDS: 0.9 % Sodium Chloride Flush 3 ML SYRINGE IVFLUSH ×3 (09:37→19:44)
[2023-12-29] MEDS: Acetaminophen 325 MG TABLET 650 MG PO ×2 (09:37→19:44)
--- NOTE | 2023-12-29 09:52 | HO.PM.IMPN ---
Subjective Subjective Date of Service: 12/29/23 Interval History: pain manageable Physical Exam Vital Signs: Vital Signs: Last Vital Signs Temp 98 F 12/29/23 07:17 Pulse 86 12/29/23 07:17 Resp 17 12/29/23 07:17 BP 123/84 12/29/23 07:17 Pulse Ox 94 12/29/23 07:17 O2 Del Method Room Air 12/29/23 07:17 BMI result Body Mass Index 26.9 Const: General: cooperative, healthy appearing and no acute distress Resp: Effort & Inspection: normal respiratory effort and able to speak in complete sentences Cardio: Rate: regular rate Peripheral pulses: Peripheral pulses 2+ throughout GI: Palpation (GI): Soft to palpation Skin: Lesions: no lesions Rashes: no rashes Extrem: Other: RUE: Edema RUE able to flex and extend all digist and the wrist. Deltoid sensation intact. LLE: Large effusion. Able to dorsi/plantar flex. Sensation intact. Pedal pulse intact. Objective Data Active Medications Acetaminophen (Acetaminophen 325 Mg Tablet) 650 mg PO Q6H PRN PRN Reason: Pain, Mild (Pain Scale 1-3) Last Admin: 12/29/23 09:37 Dose: 650 mg Documented By: JEREMÍAS Melatonin (Melatonin 3 Mg Tablet) 6 mg PO BEDTIME PRN PRN Reason: Insomnia Morphine Sulfate (Morphine Sulfate 4 Mg/Ml Cartridge) 4 mg IVPUSH Q4H PRN; Protocol PRN Reason: Pain, Severe (Pain Scale 7-10) Last Admin: 12/26/23 07:48 Dose: 4 mg Documented By: DILMA Ondansetron HCl (Ondansetron Hcl 4 Mg/2 Ml Vial) 4 mg IVPUSH Q8H PRN PRN Reason: Nausea and Vomiting Last Admin: 12/26/23 07:48 Dose: 4 mg Documented By: DILMA Sodium Chloride (0.9 % Sodium Chloride Flush 3 Ml Syringe) 3 ml [facility] Last Admin: 12/29/23 09:37 Dose: 3 ml Documented By: JEREMÍAS Labs 12/26/23 05:19 12/26/23 05:19 Assessment and Plan (1) Fracture, humerus: Status: Acute Plan 73F no significant pmh presented with mechanical fall complicated by right humerus fracture and left patellar fracture Mechanical fall complicated by acute comminuted fracture of the left patella and displaced fracture of the surgical neck of the right humerus Plan for surgery today Benefits of surgery outweigh risks would proceed as planned DVT prophylaxis mechanical due to planned surgery Full code reason for continued hospitalization: Surgery pending Quality Stroke Does the patient have a stroke diagnosis?: No VTE Prior VTE?: No VTE Risk Level:: Medical - moderate - high VTE Device Contraindication: N/A - Device Ordered VTE Drug Contraindication: Treatment Not Tolerated
--- NOTE | 2023-12-29 14:20 | MHC.CM.PN ---
Per MD rounds no discharge today. Patient is planned for surgery tomorrow. DP Patient does not have insurance for STR in [facility] [place]. She may need to return to [place] to receive Rehab. She may need assist with transport at discharge.
[2023-12-29 15:13] VITALS: BP 119/79; PULSE 92; RESP 18; TEMP 36.3; O2SAT 93
--- NOTE | 2023-12-29 19:13 | PM.PNORT ---
Subjective Subjective Date of Service: 12/29/23 <Javier ManleyMIGUEL ANGEL romo - Last Filed: 12/29/23 19:15> 12/30/23 <Mickey Reyes MD - Last Filed: 12/30/23 07:29> Interval history: Day 4 left knee patella fx has pain in the left knee right shoulder tolerating ok <Javier ManleyMIGUEL ANGEL romo - Last Filed: 12/29/23 19:15> Physical Exam Vital Signs: Vital Signs: Last Vital Signs Temp 97.4 F 12/29/23 15:13 Pulse 92 12/29/23 15:13 Resp 18 12/29/23 15:13 BP 119/79 12/29/23 15:13 Pulse Ox 93 12/29/23 15:13 O2 Del Method Room Air 12/29/23 15:13 BMI result Body Mass Index 26.9 <Javier ManleyMIGUEL ANGEL romo - Last Filed: 12/29/23 19:15> Const: General: cooperative, healthy appearing and no acute distress <Javier ManleyCATHY romoCaliChad - Last Filed: 12/29/23 19:15> Resp: Effort & Inspection: normal respiratory effort and able to speak in complete sentences <Jaiver ManleyCATHY romoShabbir - Last Filed: 12/29/23 19:15> Cardio: Rate: regular rate <Javier Bowles MIGUEL ANGEL - Last Filed: 12/29/23 19:15> Peripheral pulses: Peripheral pulses 2+ throughout <Javier ManleyCATHY romoCaliChad - Last Filed: 12/29/23 19:15> GI: Palpation (GI): Soft to palpation <Javier ManleyCATHY romoShabbir - Last Filed: 12/29/23 19:15> Skin: Lesions: no lesions <Javier ManleyMIGUEL ANGEL romo - Last Filed: 12/29/23 19:15> Rashes: no rashes <Javier ManleyCATHY romoShabbir Last Filed: 12/29/23 19:15> Extrem: Other: RUE: Edema RUE able to flex and extend all digist and the wrist. Deltoid sensation intact. LLE: Large effusion. Able to dorsi/plantar flex. Sensation intact. Pedal pulse intact. <Javier Bowles PA-C - Last Filed: 12/29/23 19:15> Procedures Date of Service Date of Service: 12/29/23 <Javier Bowles PA-C - Last Filed: 12/29/23 19:15> 12/30/23 <Mickey Reyes MD - Last Filed: 12/30/23 07:29> Progress Note: A&P Assessment and plan (1) Fracture, humerus: Status: Acute <Javier Bowles PA-C - Last Filed: 12/29/23 19:15> Assessment and Plan: Sling elbow ROM wrist ROM no lifting out patient f/u <Javier Bowles PA-C - Last Filed: 12/29/23 19:15> (2) Patellar fracture: Status: Acute <Javier Bowles PA-C - Last Filed: 12/29/23 19:15> Assessment and Plan: Dr Reyes was available to meet with the patient with me today. We explained the procedure in detail along with the length of recovery and rehab course. We explained the risk, benefits and alternatives. Risk including, but not limited to infection, blood clots, bleeding, non union or malunion and nerve/tissue damage to surrounding areas. We answered all their questions and with their understanding they have consented to move forward with Operative Fixation of the left patella . The patient will be T&S, med clearance obtained and NPO after midnight. <Javier Bowles PA-C - Last Filed: 12/29/23 19:15> I met with the patient with me today. We explained the procedure in detail along with the length of recovery and rehab course. We explained the risk, benefits and alternatives. Risk including, but not limited to infection, blood clots, bleeding, non union or malunion and nerve/tissue damage to surrounding areas. We answered all their questions and with their understanding they have consented to move forward with Operative Fixation of the left patella . The patient will be T&S, med clearance obtained and NPO after midnight. <Mickey Reyes MD - Last Filed: 12/30/23 07:29> Time Spent With Patient Time: Total time managing care of this patient today ____ minutes. <Javier Bowles PA-C - Last Filed: 12/29/23 19:15> Quality Stroke Does the patient have a stroke diagnosis?: No <Javier Bowles PA-C - Last Filed: 12/29/23 19:15> VTE Prior VTE?: No <Javier Bowles PA-C - Last Filed: 12/29/23 19:15> VTE Risk Level:: Medical - moderate - high <Javier Bowles PA-C - Last Filed: 12/29/23 19:15> VTE Device Contraindication: N/A - Device Ordered <Javier Bowles PA-C - Last Filed: 12/29/23 19:15> VTE Drug Contraindication: Treatment Not Tolerated <Javier Bowles PA-C - Last Filed: 12/29/23 19:15>
[2023-12-29 19:27] VITALS: BP 107/62; PULSE 95; RESP 18; TEMP 36.7; O2SAT 94
[2023-12-30] VITALS (10 sets, daily range): BP systolic 90–132; BP diastolic 49–85; PULSE 75–90; RESP 15–18; TEMP 36–37.3; O2SAT 93–98; BMI 26.9
[2023-12-30 06:50] LABS: Hematocrit 36.3 % (37.0-47.0); Hemoglobin 11.7 g/dl (12.0-16.0); Mean Corpuscular HGB Conc 32.2 g/dl (31.0-35.0); Mean Corpuscular Hemoglobin 29.4 pg (27.0-33.0); Mean Corpuscular Volume 91.2 fL (80.0-98.0); Mean Platelet Volume 10.9 fL (9.4-12.3); Platelet Count 246 X10*3/uL (160-400); Red Blood Count 3.98 X10*6/uL (4.20-5.50); Red Cell Distribution Width 14.4 % (11.0-16.0); White Blood Count 6.4 X10*3/uL (4.8-10.8)
[2023-12-30 07:03] LABS: Anion Gap 16 (12-20); Blood Urea Nitrogen 17 mg/dL (9-16); Calcium 9.6 mg/dL (8.4-10.2); Carbon Dioxide 25 mmol/L (22-29); Chloride 106 mmol/L (96-108); Estimated Glomerular Filt Rate > 60; Glucose Fasting 103 mg/dL (60-99); Potassium 4.3 mmol/L (3.3-5.1); Sodium 143 mmol/L (135-145)
[2023-12-30] MEDS: 0.9 % Sodium Chloride Flush 3 ML SYRINGE IVFLUSH ×2 (08:20→16:31)
--- NOTE | 2023-12-30 10:32 | P.CONAN_ITS ---
HPI - Anesthesia Eval Consult details Narrative: left patellar resurfacing today PMFSH Active Problems Active Problems: All Active Problems Fracture, humerus (Acute) Patellar fracture (Acute) Family History Family history of problems with anesthesia: No Surgical History History of Problems with Anesthesia: No Social History Social History Household Members: Significant Other Housing: Apartment Do you presently have visiting nurse or other home services: No Alcohol intake: current Alcohol intake frequency: 0-2 drinks per day Alcohol type: beer and hard liquor Patient Tobacco Use Status: Former Tobacco user Quit Date: 4 years ago Tobacco use type: Cigarette e-Cigarette/Vaping Use: Former Use Meds Allergies Allergy/AdvReac Type Severity Reaction Status Date / Time Penicillins AdvReac Dizziness Verified 12/25/23 15:19 Active Medications: Current Medications Acetaminophen (Acetaminophen 325 Mg Tablet) 650 mg PO Q6H PRN PRN Reason: Pain, Mild (Pain Scale 1-3) Last Admin: 12/29/23 19:44 Dose: 650 mg Cefazolin Sodium/Dextrose (Ancef) 2 gm in 50 mls @ 100 mls/hr IV PREOP ONE Stop: 12/30/23 12:29 Melatonin (Melatonin 3 Mg Tablet) 6 mg PO BEDTIME PRN PRN Reason: Insomnia Morphine Sulfate (Morphine Sulfate 4 Mg/Ml Cartridge) 4 mg IVPUSH Q4H PRN; Protocol PRN Reason: Pain, Severe (Pain Scale 7-10) Last Admin: 12/26/23 07:48 Dose: 4 mg Ondansetron HCl (Ondansetron Hcl 4 Mg/2 Ml Vial) 4 mg IVPUSH Q8H PRN PRN Reason: Nausea and Vomiting Last Admin: 12/26/23 07:48 Dose: 4 mg Sodium Chloride (0.9 % Sodium Chloride Flush 3 Ml Syringe) 3 ml IVFLUSH QSHIFT [facility] Last Admin: 12/30/23 08:20 Dose: 3 ml Exam Height,Weight and Vital Signs: Height 5 ft 5 in Weight 73.3 kg Last Vital Signs Temp 98.4 F 12/30/23 09:57 Pulse 84 12/30/23 09:57 Resp 16 12/30/23 09:57 BP 129/85 12/30/23 09:57 Pulse Ox 98 12/30/23 09:57 O2 Del Method Room Air 12/30/23 09:57 Pertinent Lab Results Pertinent Lab Results: Laboratory Tests 12/25/23 12/26/23 12/30/23 18:54 05:19 05:49 WBC 10.7 7.6 6.4 RBC 4.46 3.73 L 3.98 L Hgb 13.2 11.1 L 11.7 L Hct 42.5 34.3 L 36.3 L MCV 95.3 92.0 91.2 MCH 29.6 29.8 29.4 MCHC 31.1 32.4 32.2 RDW 14.3 14.5 14.4 Plt Count 226 234 246 MPV 11.7 10.8 10.9 Immature Gran % (Auto) 0.7 H 0.5 H Neut % (Auto) 77.1 H 61.8 Lymph % (Auto) 14.5 L 25.3 Morrill % (Auto) 5.8 10.3 Eos % (Auto) 0.8 1.3 Baso % (Auto) 1.1 0.8 Lymph # (Auto) 1.6 1.9 Morrill # (Auto) 0.6 0.8 Eos # (Auto) 0.1 0.1 Baso # (Auto) 0.1 0.1 Abs Immat Gran (auto) 0.07 H 0.04 H Absolute Neuts (auto) 8.3 4.7 Absolute Nucleated RBC 0.000 0.000 0.000 Nucleated RBC % (auto) 0.0 0.0 0.0 Smear Tech's Comments VERIFIED Sodium 143 141 143 Potassium 4.0 4.1 4.3 Chloride 110 H 108 106 Carbon Dioxide 18 L 22 25 Anion Gap 19 15 16 BUN 15 13 17 H Creatinine 0.81 0.72 0.68 Estim Creat Clear Calc 61.9 69.6 75.0 Estimated GFR > 60 > 60 > 60 Random Glucose 114 114 Fasting Glucose 103 H Calcium 10.3 H 9.0 D 9.6 D Magnesium 2.3 Total Bilirubin 0.3 Direct Bilirubin 0.1 AST 18 ALT 16 Alkaline Phosphatase 70 Total Protein 7.4 Albumin 4.4 Airway Mallampati Class: II TM Dist: >3cm Neck ROM: Full Heart: rrr Lungs: cta Assessment and Plan Assessment Anesthesia Assessment: Anesthesia Plan Discussed and Chart Reviewed Final Anesthetic Review Family History of Problems with Anesthesia: No History of Problems with Anesthesia: No NPO: Yes ASA Class: I Final Preanesthetic Review: No Changes in Pt Med Stat, Meds/Allgs Chart Reviewed, Consent Obtained/Reviewed and Anes Risks/Benef Reviewed Patient Risk: Intermediate Procedure Risk: Low Anesthetic Plan Anesthetic Plan: GA and Regional Block Disposition: Standard PACU
--- NOTE | 2023-12-30 11:29 | P.PNIM_ITS ---
Subjective Subjective Date of Service: 12/30/23 Interval History: pain manageable Physical Exam 2 Vital Signs: Vital Signs: Last Vital Signs Temp 98.4 F 12/30/23 09:57 Pulse 84 12/30/23 09:57 Resp 16 12/30/23 09:57 BP 129/85 12/30/23 09:57 Pulse Ox 98 12/30/23 09:57 O2 Del Method Room Air 12/30/23 09:57 BMI result Body Mass Index 26.9 Const: General: cooperative, healthy appearing and no acute distress Resp: Effort & Inspection: normal respiratory effort and able to speak in complete sentences Cardio: Rate: regular rate Peripheral pulses: Peripheral pulses 2+ throughout GI: Palpation (GI): Soft to palpation Skin: Lesions: no lesions Rashes: no rashes Extrem: Other: RUE: Edema RUE able to flex and extend all digist and the wrist. Deltoid sensation intact. LLE: Large effusion. Able to dorsi/plantar flex. Sensation intact. Pedal pulse intact. Objective Data Active Medications Acetaminophen (Acetaminophen 325 Mg Tablet) 650 mg PO Q6H PRN PRN Reason: Pain, Mild (Pain Scale 1-3) Last Admin: 12/29/23 19:44 Dose: 650 mg Documented By: GALDINO Cefazolin Sodium/Dextrose (Ancef) 2 gm in 50 mls @ 100 mls/hr IV PREOP ONE Stop: 12/30/23 12:29 Melatonin (Melatonin 3 Mg Tablet) 6 mg PO BEDTIME PRN PRN Reason: Insomnia Morphine Sulfate (Morphine Sulfate 4 Mg/Ml Cartridge) 4 mg IVPUSH Q4H PRN; Protocol PRN Reason: Pain, Severe (Pain Scale 7-10) Last Admin: 12/26/23 07:48 Dose: 4 mg Documented By: DILMA Ondansetron HCl (Ondansetron Hcl 4 Mg/2 Ml Vial) 4 mg IVPUSH Q8H PRN PRN Reason: Nausea and Vomiting Last Admin: 12/26/23 07:48 Dose: 4 mg Documented By: DILMA Ondansetron HCl (Ondansetron Hcl 4 Mg/2 Ml Vial) 4 mg IVPUSH ONCE PRN PRN Reason: Nausea and Vomiting Stop: 12/30/23 16:33 Sodium Chloride (0.9 % Sodium Chloride Flush 3 Ml Syringe) 3 ml IVFLUSH QSHIFT [facility] Last Admin: 12/30/23 08:20 Dose: 3 ml Documented By: BREANNA Labs 12/30/23 05:49 12/30/23 05:49 Labs: Laboratory Results - last 24 hr 12/30/23 05:49 MCV 91.2 MCH 29.4 MCHC 32.2 RDW 14.4 Plt Count 246 MPV 10.9 Absolute Nucleated RBC 0.000 Nucleated RBC % (auto) 0.0 Anion Gap 16 Estim Creat Clear Calc 75.0 Estimated GFR > 60 Fasting Glucose 103 H Calcium 9.6 D Assessment and Plan (1) Fracture, humerus: Status: Acute Plan 73F no significant pmh presented with mechanical fall complicated by right humerus fracture and left patellar fracture Mechanical fall complicated by acute comminuted fracture of the left patella and displaced fracture of the surgical neck of the right humerus Plan for surgery today, 12/30/23 Benefits of surgery outweigh risks would proceed as planned DVT prophylaxis mechanical due to planned surgery Full code reason for continued hospitalization: Surgery today Quality Stroke Does the patient have a stroke diagnosis?: No VTE Prior VTE?: No VTE Risk Level:: Medical - moderate - high VTE Device Contraindication: N/A - Device Ordered VTE Drug Contraindication: Treatment Not Tolerated
--- NOTE | 2023-12-30 12:11 | P.BOP_ITS ---
Brief Operative Note Date of Service: 12/30/23 Pre-op diagnosis: Left patella fx Procedure: ORIF left patella Implants: cerclag 18 g x 2 Surgeon: Mickey Reyes MD Anesthesia: GETA, regional and local Was an Overlock Waistline Joiner used for this Procedure?: No Estimated blood loss (mL): 50 Tourniquet time (min): 70 Pathology: none sent Condition: stable Disposition: PACU
[2023-12-30] MEDS: Acetaminophen 325 MG TABLET 650 MG PO (18:51)
[2023-12-31] VITALS (10 sets, daily range): BP systolic 107–118; BP diastolic 55–67; PULSE 73–83; RESP 16–18; TEMP 36–36.4; O2SAT 91–97
[2023-12-31] MEDS: 0.9 % Sodium Chloride Flush 3 ML SYRINGE IVFLUSH ×4 (00:36→20:57)
[2023-12-31] MEDS: Acetaminophen 325 MG TABLET 650 MG PO ×3 (03:50→23:18)
[2023-12-31 06:25] LABS: Hematocrit 31.9 % (37.0-47.0); Hemoglobin 10.5 g/dl (12.0-16.0); Mean Corpuscular HGB Conc 32.9 g/dl (31.0-35.0); Mean Corpuscular Hemoglobin 30.3 pg (27.0-33.0); Mean Corpuscular Volume 92.2 fL (80.0-98.0); Mean Platelet Volume 10.4 fL (9.4-12.3); Platelet Count 244 X10*3/uL (160-400); Red Blood Count 3.46 X10*6/uL (4.20-5.50); Red Cell Distribution Width 14.1 % (11.0-16.0); White Blood Count 8.3 X10*3/uL (4.8-10.8)
[2023-12-31 06:31] LABS: Anion Gap 15 (12-20); Blood Urea Nitrogen 23 mg/dL (9-16); Calcium 9.1 mg/dL (8.4-10.2); Carbon Dioxide 23 mmol/L (22-29); Chloride 106 mmol/L (96-108); Estimated Glomerular Filt Rate > 60; Glucose Fasting 113 mg/dL (60-99); Sodium 140 mmol/L (135-145)
--- NOTE | 2023-12-31 08:27 | P.OP_ITS ---
Operative Note Operative Note Date of Service: 12/30/23 Narrative: Date of Service: 12/30/23 Pre-op diagnosis: Left patella fx Procedure: ORIF left patella Implants: cerclage 18 g x 2 Surgeon: Mickey Reyes MD Anesthesia: GETA, regional and local Was an Program Director used for this Procedure?: No Estimated blood loss (mL): 50 Tourniquet time (min): 70 Pathology: none sent Condition: stable Disposition: PACU Patient was brought to the operating room placed supine on the operative table and prepped and draped in standard sterile fashion. A time-out was called to identify proper site proper procedure proper surgeon IV antibiotics were administered. I began by making a midline incision over the patella. Full- thickness flaps were developed down to the patellar fascia. A comminuted transverse fracture was easily identified. The hematoma was removed and the fracture was cleaned. I began by placing a K-wire from proximal to distal parallel to the articular surface of the fracture. The bone quality was very poor and the bone was not able to hold screws. It was also comminuted. I therefore placed one 18 g wire through the four main fracture fragments and tightened this medially in a purse string fashion. This improved the alignment but I was worried about cutout given the bone quality so I added an addition wire through the largest two fragments and tightened this. This re-approximated the articular surface. I took the knee through a full ROM and there was no change in hardware position of fracture alignment. I then cut and buried the cerclage and irrigated copiously. Absorbable sutures and brittaney were used to close and she was placed into sterile dressings. There were no known complications,. A knee immobilizer was placed. She will remain locked in extension for 2 weeks and then may increase flexion in weekly 20 deg increments.
--- NOTE | 2023-12-31 09:29 | HO.POSTANES ---
Post Anesthesia Evaluation Post Anesthesia Evaluation Date of Service: 12/31/23 Vital Signs: Vital Signs Temp Pulse Resp BP Pulse Ox O2 Del Method O2 Flow Rate 12/31/23 08:13 73 110/62 95 12/31/23 07:13 96.8 F 73 16 110/62 95 Room Air 12/31/23 04:50 18 12/31/23 04:21 97.6 F 83 18 117/67 Nasal Cannula 2 Anesthesia: General LMA Mental Status: Awake Pain Control: Satisfactory Nausea/Vomiting: None Hydration: Adequate Anesthesia-Related Issues: No Anes. Related Issues
--- NOTE | 2023-12-31 10:32 | MHC.CM.PN ---
EMR reviewed. Patient POD #1. Not medically cleared for dc at this time. PT rec home w/ equipment. PT has given equipment recommendations to patient and . Will dc to brother's home and return to [facility] in a few weeks. CM will continue to follow.
--- NOTE | 2023-12-31 10:36 | PM.PNORT ---
Subjective Subjective Date of Service: 12/31/23 Interval history: POD1 s/p left patella ORIF Patient is resting in the recliner comfortably No overnight events Pain is managed No additional complaints Physical Exam Vital Signs: Vital Signs: Last Vital Signs Temp 96.8 F 12/31/23 07:13 Pulse 73 12/31/23 08:13 Resp 16 12/31/23 07:13 BP 110/62 12/31/23 08:13 Pulse Ox 92 12/31/23 10:32 O2 Del Method Room Air 12/31/23 07:13 O2 Flow Rate 2 12/31/23 04:21 BMI result Body Mass Index 26.9 Const: General: cooperative, healthy appearing and no acute distress Resp: Effort & Inspection: normal respiratory effort and able to speak in complete sentences Cardio: Rate: regular rate Peripheral pulses: Peripheral pulses 2+ throughout GI: Palpation (GI): Soft to palpation Skin: Lesions: no lesions Rashes: no rashes Extrem: Other: left knee dressing is c/d/i. Able to dorsi/plantar flex. Calf is supple and nontender. Sensation intact. Pedal pulse intact. Procedures Date of Service Date of Service: 12/31/23 Progress Note: A&P Assessment and plan (1) Fracture, humerus: Status: Acute (2) Patellar fracture: Status: Acute Assessment and Plan: Continue pain mgmnt Begin ASA for dvt ppx begin PT/OT for left knee ORIF - WBAT in extension NWB RUE Dispo planning-Pending PT eval, pain mgmnt Time Spent With Patient Time: Total time managing care of this patient today ____ minutes. Quality Stroke Does the patient have a stroke diagnosis?: No VTE Prior VTE?: No VTE Risk Level:: Medical - moderate - high VTE Device Contraindication: N/A - Device Ordered VTE Drug Contraindication: Treatment Not Tolerated
[2023-12-31] MEDS: Aspirin 325 MG TABLET PO ×2 (11:04→23:16)
--- NOTE | 2023-12-31 12:54 | HO.PM.IMPN ---
Subjective Subjective Date of Service: 12/31/23 Interval History: Seen and evaluated this morning feels little better pain under fair control Physical Exam Vital Signs: Vital Signs: Last Vital Signs Temp 97.1 F 12/31/23 11:41 Pulse 75 12/31/23 11:41 Resp 16 12/31/23 11:41 BP 113/63 12/31/23 11:41 Pulse Ox 94 12/31/23 11:41 O2 Del Method Room Air 12/31/23 11:41 O2 Flow Rate 2 12/31/23 04:21 BMI result Body Mass Index 26.9 Const: Other: Constitutional : Awake, interactive, not in distress Neck : Normal inspection, Supple Cardiovascular : RRR, no JVP, trace lower extremity edema Respiratory : good bilateral air entry, no wheezes or rhonchi Gastrointestinal: soft, lax, Normal bowel sounds, Non tender Skin : Warm, Dry, right arm in cast, knee wound covered with dressing Neurological : Alert & oriented x3, No focal deficit Objective Data Active Medications Acetaminophen (Acetaminophen 325 Mg Tablet) 650 mg PO Q6H PRN PRN Reason: Pain, Mild (Pain Scale 1-3) Last Admin: 12/31/23 03:50 Dose: 650 mg Documented By: EVANS Aspirin (Aspirin 325 Mg Tablet) 325 mg PO Q12H [facility] Last Admin: 12/31/23 11:04 Dose: 325 mg Documented By: LITTLE Hydrocortisone (Hydrocortisone 1 % Cream 28.35 Gm Tube) 1 appl TOPICAL BID PRN; Protocol PRN Reason: itchy Cefazolin Sodium/Dextrose (Ancef) 2 gm in 50 mls @ 100 mls/hr IV POSTOP [facility] Melatonin (Melatonin 3 Mg Tablet) 6 mg PO BEDTIME PRN PRN Reason: Insomnia Ondansetron HCl (Ondansetron Hcl 4 Mg/2 Ml Vial) 4 mg IVPUSH Q8H PRN PRN Reason: Nausea and Vomiting Last Admin: 12/26/23 07:48 Dose: 4 mg Documented By: DILMA Sodium Chloride (0.9 % Sodium Chloride Flush 3 Ml Syringe) 3 ml IVFLUSH QSHIFT [facility] Last Admin: 12/31/23 09:06 Dose: 3 ml Documented By: LITTLE Labs 12/31/23 05:42 12/31/23 05:42 Labs: Laboratory Results - last 24 hr 12/31/23 05:42 MCV 92.2 MCH 30.3 MCHC 32.9 RDW 14.1 Plt Count 244 MPV 10.4 Absolute Nucleated RBC 0.000 Nucleated RBC % (auto) 0.0 Anion Gap 15 Estim Creat Clear Calc 75.0 Estimated GFR > 60 Fasting Glucose 113 H Calcium 9.1 Assessment and Plan (1) Fracture, humerus: Status: Acute (2) Patellar fracture: Status: Acute Plan 73F no significant pmh presented with mechanical fall complicated by right humerus fracture and left patellar fracture Mechanical fall complicated by acute comminuted fracture of the left patella and displaced fracture of the surgical neck of the right humerus POD 1 PT\OT ASA for DVT PPx Oxycodone for pain Orthopedic team following DVT prophylaxis ASA Full code reason for continued hospitalization: post surgery pain control, physical therapy pending safe discharge plan. Quality Stroke Does the patient have a stroke diagnosis?: No VTE Prior VTE?: No VTE Risk Level:: Medical - moderate - high VTE Device Contraindication: N/A - Device Ordered VTE Drug Contraindication: Treatment Not Tolerated
[2024-01-01 03:39] VITALS: BP 126/62; PULSE 82; RESP 18; TEMP 36.4; O2SAT 95
[2024-01-01 08:16] VITALS: BP 126/62; PULSE 82; O2SAT 95
[2024-01-01] MEDS: Aspirin 325 MG TABLET PO (09:16)
[2024-01-01] MEDS: Acetaminophen 325 MG TABLET 650 MG PO (09:16)
[2024-01-01] MEDS: 0.9 % Sodium Chloride Flush 3 ML SYRINGE IVFLUSH (09:17)
--- NOTE | 2024-01-01 10:39 | P.DS_ITS ---
DS: Providers Provider Date of Service: 01/01/24 Date of admission: 12/25/23 20:38 Primary care physician: Unknown Physician Consults: 12/25/23 18:35 Consult to Orthopedics Stat Consulting Provider: [facility] Surgeons Reason for consultation: patellar and humerus fx DS: Diagnosis Discharge Diagnosis (1) Fracture, humerus: Status: Acute (2) Patellar fracture: Status: Acute DS: Summary Hospital Course Hospital Course: Admission note HPI This is a 73-year-old female with no pertinent past medical history and not on prescription medications who presents to the emergency department for evaluation after a fall. Patient states she was walking on the sidewalk when she tripped and fell. Patient thinks that her foot got stuck into something and hence she tripped and fell. Did not lose consciousness prior to the fall. No chest discomfort or palpitations. No rhythmic jerking movement of extremities. No head strike. Patient fell on her left lower extremity and used her right upper extremity to stabilize before fall. Reports painful movement of right upper extremity and painful knee movement since the fall. No fever, chills, chest discomfort, palpitations, shortness of breath, abdominal pain, changes in urinary or bowel habits. In the emergency department, imaging with mildly displaced fracture of the surgical neck of humerus and acute comminuted distracted fracture of the patella Hospital course The patient was admitted after a Mechanical fall complicated by acute comminuted fracture of the left patella and displaced fracture of the surgical neck of the right humerus. She had internal fixation of the patella fracture by orthopedic team. had PT therapy session and did well. recommended equipments that her significant other will bring. Pain was controlled with PO Tylenol only. ASA for DVT PPx as she will follow with Orthopedic team as outpatient with recommendations for WBAT in extension LLE and NWB RUE. Discharge plan Follow with orthopedic office as scheduled Time Attestation Discharge Coordination Time (in mins): 34 Quality: Safe Use of Opioids Does Pt have an Active Cancer Diagnosis on the Problem List?: No Quality: Stroke Does the patient have a stroke diagnosis?: No Physical Exam Vital Signs: Vital Signs: Last Vital Signs Temp 97.6 F 01/01/24 03:39 Pulse 82 01/01/24 08:16 Resp 18 01/01/24 03:39 BP 126/62 01/01/24 08:16 Pulse Ox 95 01/01/24 08:16 O2 Del Method Room Air 01/01/24 03:39 O2 Flow Rate 2 12/31/23 04:21 BMI result Body Mass Index 26.9 Const: Other: Constitutional : Awake, interactive, not in distress Neck : Normal inspection, Supple Cardiovascular : RRR, no JVP, trace lower extremity edema Respiratory : good bilateral air entry, no wheezes or rhonchi Gastrointestinal: soft, lax, Normal bowel sounds, Non tender Skin : Warm, Dry, right arm in sling, knee wound covered with dressing Neurological : Alert & oriented x3, No focal deficit DS: Data Imaging Chest x-ray: Radiologist's impression: ITS Impressions Knee X-Ray 12/25/23 18:05 IMPRESSION: Acute comminuted, distracted fracture of the patella. Shoulder X-Ray 12/25/23 18:05 IMPRESSION: Mildly displaced fracture of the surgical neck of the humerus. Foot X-Ray 12/25/23 19:05 IMPRESSION: Normal left foot. Guidance Fluoroscopy 12/30/23 12:10 IMPRESSION: Intraoperative fluoroscopic guidance is provided during left patellar ORIF. Please see the patient's Operative Report for full procedural details. Discharge Plan Discharge Anticipated Discharge Date/Time: 01/01/24 10:37 Patient Disposition: Home, Self-Care Discharge Diagnosis: Humerus fracture Patellar fracture Referrals: Physician,Unknown J [Primary Care Provider] - 1 Week Discharge Medications: New aspirin 325 mg Tablet 325 mg PO Q12H 42 Days Qty: 84 0RF Discharge Orders: Discharge Order (Routine); Ordered 01/01/24 Ordered By: Teja Bass Diet: Regular diet Activity on Discharge: Use cane or walker Stand Alone Forms: Patient Portal Discharge page Print Language: Sinhala Care Plan Goals: Read below Health Concerns: Read below Plan of Treatment: * WBAT with brace locked in extension at all times * DO NOT BEND THE KNEE * Keep dressing clean, dry and intact * Perform Ankle pumps for leg circulation 4x a day * Elevate leg above the level of the heart on 3 pillows * Any questions or concerns please call the office GUICHO * Follow up with Orthopedics in 2 weeks. Assessment: Follow with orthopedic office as scheduled
--- NOTE | 2024-01-01 13:33 | MHC.CM.PN ---
Patient is discharge to home with equipment recommended by PT. The equipment has been obtained by her spouse. She will stay in [place] for 3 weeks. She will return to [facility]; which is where her Hospital bill should be sent. Local address [address] [place] [id number]. Patient will transport to her brothers home at discharge. He spouse will provide transportation home.
== END 2024-01-01 13:21 | disposition home or self-care (01) | DRG 516 ==
LOC: HO.ED 18:35 → HO.EDOVER 20:55 → HO.S3 12-26 13:42
PROVIDERS: Internal Medicine; Orthopaedic Surgery; Physician Assistant; Admitting Provider Student in an Organized Health Care Education/Training Program; Emergency Provider Emergency Medicine; Visit Provider Student in an Organized Health Care Education/Training Program
PROC: 0QSF04Z Reposition Left Patella with Internal Fixation Device, Open Approach (ICD-10-PCS; CPT 27524; principal; 2023-12-30 11:30)
DX: S82.032A Displaced transverse fracture of left patella, initial encounter for closed fracture (principal); S42.211A Unspecified displaced fracture of surgical neck of right humerus, initial encounter for closed fracture; G89.18 Other acute postprocedural pain; W19.XXXA Unspecified fall, initial encounter; Z87.891 Personal history of nicotine dependence
CPT/HCPCS: 36415; 73030; 73564; 73630; 80048; 80076; 83735; 85025; 85027; 93005; 97116; 97163; 97167; 97530; 97535; 99285; J0131; J0665; J0690; J1100; J1885; J2250; J2270; J2371; J2405; J2795; J3010

== ENCOUNTER 2023-12-25 20:38 | Outpatient (BNV) | payer SELFPAY | END 2023-12-26 11:24 | PROVIDERS: Admitting Provider Student in an Organized Health Care Education/Training Program; Emergency Provider Emergency Medicine; Visit Provider Internal Medicine Cardiovascular Disease | DX: Z01.810 Encounter for preprocedural cardiovascular examination (principal) | CPT/HCPCS: 93010 ==

== ENCOUNTER → 2023-12-25 20:38 | Outpatient (BNV) | payer SELFPAY | PROVIDERS: Admitting Provider Student in an Organized Health Care Education/Training Program; Emergency Provider Emergency Medicine; Visit Provider Student in an Organized Health Care Education/Training Program | DX: S42.309A Unspecified fracture of shaft of humerus, unspecified arm, initial encounter for closed fracture (principal) | CPT/HCPCS: 99222; 99231; 99232; 99239 ==

== ENCOUNTER → 2023-12-25 20:38 | Outpatient (BNV) | payer SELFPAY | PROVIDERS: Admitting Provider Student in an Organized Health Care Education/Training Program; Emergency Provider Emergency Medicine; Visit Provider Physician Assistant | DX: S42.309A Unspecified fracture of shaft of humerus, unspecified arm, initial encounter for closed fracture (principal); S82.032A Displaced transverse fracture of left patella, initial encounter for closed fracture | CPT/HCPCS: 27524; 99024; 99222; 99231; 99233 ==

== ENCOUNTER 2024-01-15 10:20 | Outpatient (AMB) | payer SELFPAY ==
--- NOTE | 2024-01-15 10:58 | A.OFFVIS_ITS ---
Intake Visit Reasons: PO-LT knee ORIF Patella 12/30/23 Intake Note: Susanne a 73 year old female who presents today for a post operative visit s/p left knee ORIF on 12/30/23. Patient report that she is doing well, states she does have soreness. States causes her the most discomfort. Allergies Penicillins Adverse Reaction (Verified 01/15/24 11:06) Dizziness HPI HPI PO-LT knee ORIF Patella 12/30/23: Details: 73-year-old female who returns to the office today for post-op left knee ORIF, 12/30/23. She states she has soreness in her knee that is aggravated with using recliner and ambulation. She is doing well otherwise and has no other concerns today. [facility] Social History Household Members: Significant Other Housing: Apartment Do you presently have visiting nurse or other home services: No Alcohol intake: current Alcohol intake frequency: 0-2 drinks per day Alcohol type: beer and hard liquor Patient Tobacco Use Status: Former Tobacco user Tobacco use type: Cigarette e-Cigarette/Vaping Use: Former Use Review of Systems Const All systems reviewed & are unremarkable except as noted in HPI and below Physical Exam Extrem Other: Left knee: Incision clean, dry and intact. No erythema or joint effusion. She has full extension at 0 degrees. Calf supple, nontender. NVI. Right shoulder: Normal to inspection.Improved Swelling and tenderness over the proximal humerus which extends down the arm. Anterior deltoid sensation intact. Elbow and wrist ROM intact. NVI. Results Reviewed Results Reviewed: Xrays were obtained in the office today and personally reviewed by me of the left knee show intact hardware with redemonstration of fracture Xrays were obtained in the office today and personally reviewed by me of the right shoulder show stable proximal humerus fx Assessment & Plan Assessment & Plan (1) Patellar fracture: Code(s): S82.009A - Unspecified fracture of unspecified patella, initial encounter for closed fracture Category: Medical Qualifiers: Encounter type: initial encounter Fracture alignment: displaced Fracture morphology: transverse Fracture type: closed Laterality: left Qualified Code(s): S82.032A - Displaced transverse fracture of left patella, initial encounter for closed fracture (2) Fracture, humerus: Code(s): S42.309A - Unspecified fracture of shaft of humerus, unspecified arm, initial encounter for closed fracture Category: Medical Qualifiers: Encounter type: subsequent encounter Fracture type: closed Humerus Location: proximal Fracture alignment: displaced Laterality: right Fracture healing: with routine healing Fracture morphology: other fracture Qualified Code(s): S42.291D - Other displaced fracture of upper end of right humerus, subsequent encounter for fracture with routine healing Plan Sutures removed today, steri strips applied. She is originally from [place] therefore she has no insurance in the area and is unable to attend physical therapy. I did show her some exercises to work on quad function in the office today without bending her knee. She can unlock the brace to 15 degrees in 2 weeks. I also showed how to unlock another 30 degrees starting in another 2 weeks. She will follow-up at that time with Dr. Reyes and new x-rays, sooner if needed. For her shoulder, she can use the sling for comfort and work on PROM/AAROM and periscap stabilization. Orders: Orders XR shoulder RT min 2V 01/15/24 M25.511 - Pain in right shoulder XR knee LT 2V 01/15/24 M25.562 - Pain in left knee Patient Instructions: Scribed for Javier Bowles PA-C, by López Fernandez medical reimbursement manager, on 01/15/2024 at 10:45 AM EST.? I, Javier Bowles PA-C, have personally reviewed and agree with the information entered by the scribe. Coding Level of Care Code Global (03852) Diagnoses Patellar fracture S82.032A Encounter type: initial encounter Fracture alignment: displaced Fracture morphology: transverse Fracture type: closed Laterality: left Other closed displaced fracture of proximal end of right humerus with routine healing, subsequent encounter S42.291D Encounter type: subsequent encounter Fracture type: closed Humerus Location: proximal Fracture alignment: displaced Laterality: right Fracture healing: with routine healing Fracture morphology: other fracture
== END 2024-01-15 12:35 | disposition home or self-care (01) ==
PROVIDERS: Visit Provider Physician Assistant
DX: S82.032A Displaced transverse fracture of left patella, initial encounter for closed fracture (principal); S42.291D Other displaced fracture of upper end of right humerus, subsequent encounter for fracture with routine healing
CPT/HCPCS: 99024

== ENCOUNTER 2024-01-15 11:46 | Outpatient (REF) | payer SELFPAY ==
--- NOTE | ~2024-01-15 | XR_ITS ---
EXAMINATION: XR SHOULDER, RIGHT CLINICAL INFORMATION: Right shoulder pain. COMPARISON: 12/25/2023 TECHNIQUE: Two views of the right shoulder. FINDINGS: Again seen is a transverse fracture of the proximal humerus in the region of the surgical neck. Displacement is mild and not appreciably changed as compared to prior allowing for differences in projection. No new fractures are identified. There is new callus formation at the fracture site laterally without definite osseous bridging. 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 Humeral alignment is normal. Bones are osteopenic. XR/XR shoulder RT min 2V IMPRESSION: Unchanged alignment of the proximal humeral fracture with new callus formation. No appreciable osseous bridging.
--- NOTE | ~2024-01-15 | XR_ITS ---
EXAMINATION: XR KNEE, LEFT CLINICAL INFORMATION: Left ankle pain. COMPARISON: 10/25/2023 TECHNIQUE: AP and lateral views of the left knee. FINDINGS: Cerclage wires at the patella are intact. The alignment of the transverse patellar fracture is improved as compared to the presurgical images. There is a 2 to 3 mm of persistent diastases of the fracture line with articular cortical step-off of 3 mm. Small joint effusion. Soft tissues are swollen. Mild medial compartment osteoarthritis. XR/XR knee LT 2V IMPRESSION: Improved alignment of the transverse patellar fracture status post ORIF. No acute osseous findings.
== END 2024-01-15 11:47 | disposition home or self-care (01) ==
LOC: HO.HOSX 11:46
PROVIDERS: Visit Provider Physician Assistant
DX: S82.032D Displaced transverse fracture of left patella, subsequent encounter for closed fracture with routine healing (principal); S42.291D Other displaced fracture of upper end of right humerus, subsequent encounter for fracture with routine healing
CPT/HCPCS: 73030; 73560; 99212

== ENCOUNTER 2024-02-13 09:04 | Outpatient (REF) | payer SELFPAY ==
--- NOTE | ~2024-02-13 | XR_ITS ---
EXAMINATION: XR KNEE, LEFT CLINICAL INFORMATION: Reason for Exam M25.562 - Pain in left knee COMPARISON: Knee radiographs 01/15/2024 TECHNIQUE: 2 views of the knee FINDINGS: Again seen are cerclage wires fixating a patellar fracture in similar alignment with increasing indistinctness of the fracture margin suggesting ongoing healing. Mild osteoarthritis of the knee with small osteophytes. Possible trace suprapatellar joint effusion decreased from prior. Soft tissue swelling about the knee. XR/XR knee LT 2V IMPRESSION: 1. Again seen are cerclage wires fixating a patellar fracture in similar alignment with increasing indistinctness of the fracture margin suggesting ongoing healing. 2. Possible trace suprapatellar joint effusion decreased from prior. Soft tissue swelling about the knee.
--- NOTE | ~2024-02-13 | XR_ITS ---
EXAMINATION: XR SHOULDER, RIGHT CLINICAL INFORMATION: Reason for Exam M25.519 - Pain in unspecified shoulder COMPARISON: Shoulder radiographs 01/15/2024 TECHNIQUE: Two views of the shoulder. FINDINGS: Again seen is a healing fracture of the proximal humerus with improving bony callus formation. Moderate osteoarthritis of the shoulder predominantly involving the acromioclavicular joint unchanged. Soft tissues are unremarkable. XR/XR shoulder RT min 2V IMPRESSION: 1. Again seen is a healing fracture of the proximal humerus with improving bony callus formation. 2. Moderate osteoarthritis of the shoulder predominantly involving the acromioclavicular joint unchanged.
== END 2024-02-13 09:05 | disposition home or self-care (01) ==
LOC: HO.HOSX 09:04
PROVIDERS: Visit Provider Orthopaedic Surgery
DX: S82.032D Displaced transverse fracture of left patella, subsequent encounter for closed fracture with routine healing (principal); S42.201D Unspecified fracture of upper end of right humerus, subsequent encounter for fracture with routine healing
CPT/HCPCS: 73030; 73560; 99212

== ENCOUNTER 2024-02-13 09:53 | Outpatient (AMB) | payer SELFPAY ==
--- NOTE | 2024-02-13 10:11 | MHC.OFFVIS ---
Intake Visit Reasons: Post Op - Left Patella ORIF 12/30/23 Intake Note: Susanne is a 73 year old female who presents today for a post operative appointment 6 weeks s/p Left Patella ORIF 12/30/23. She also sustained a Right Proximal Humerus Fx DOI: 12/25/23. She reports she is doing well and has no pain. Allergies Penicillins Adverse Reaction (Verified 02/13/24 10:37) Dizziness Medication List - Last Reconciled 02/13/24 by Sita Marcelino RN aspirin 325 mg PO Q12H 42 days HPI HPI Post Op - Left Patella ORIF 12/30/23: Details: no pain but still not moving much. [facility] Social History Household Members: Significant Other Housing: Apartment Do you presently have visiting nurse or other home services: No Alcohol intake: current Alcohol intake frequency: 0-2 drinks per day Alcohol type: beer and hard liquor Patient Tobacco Use Status: Former Tobacco user Tobacco use type: Cigarette e-Cigarette/Vaping Use: Former Use Physical Exam Extrem Other: inc c/d/i 0-30 deg motion with no lag right shoulder with 70 deg abd and 35 deg ER. No pain with motion Results Reviewed Results Reviewed: right shoulder radiographs reveal a healing 2 part proximal humerus fracture Left patella fracture healing with no hardware complications Assessment & Plan Assessment & Plan (1) Proximal humerus fracture: Code(s): S42.209A - Unspecified fracture of upper end of unspecified humerus, initial encounter for closed fracture Category: Medical Plan: Healing right humerus fracture. Continue activity as tolerated. (2) Patellar fracture: Code(s): S82.009A - Unspecified fracture of unspecified patella, initial encounter for closed fracture Category: Medical Qualifiers: Encounter type: initial encounter Fracture alignment: displaced Fracture morphology: transverse Fracture type: closed Laterality: left Qualified Code(s): S82.032A - Displaced transverse fracture of left patella, initial encounter for closed fracture Plan: May progress 10 deg/week Instructed her on active assisted ROM of left knee Brace locked in extension Orders: Orders XR shoulder RT min 2V 02/13/24 M25.519 - Pain in unspecified shoulder Coding Level of Care Code Global (88549) Diagnoses Proximal humerus fracture S42.209A Patellar fracture S82.032A Encounter type: initial encounter Fracture alignment: displaced Fracture morphology: transverse Fracture type: closed Laterality: left
== END 2024-02-13 11:20 | disposition home or self-care (01) ==
PROVIDERS: Visit Provider Orthopaedic Surgery
DX: S42.209A Unspecified fracture of upper end of unspecified humerus, initial encounter for closed fracture (principal); S82.032A Displaced transverse fracture of left patella, initial encounter for closed fracture
CPT/HCPCS: 99024

== ENCOUNTER 2024-02-20 09:59 | Outpatient (AMB) | payer SELFPAY ==
--- NOTE | 2024-02-20 10:11 | A.OFFVIS_ITS ---
Intake Visit Reasons: Post Op - Left Patella ORIF 12/30/23 Intake Note: Susanne is a 73 year old female who presents today for a post operative appointment s/p Left Patella ORIF 12/30/23. Patient reports that she is doing better, she feels that she is getting strong every day. She explains that she is from [place] and she is trying to get back home Allergies Penicillins Adverse Reaction (Verified 02/13/24 10:37) Dizziness HPI HPI Post Op - Left Patella ORIF 12/30/23: Details: no complaints. feeling better than last visit. Returning to [place] soon. [facility] Social History Household Members: Significant Other Housing: Apartment Do you presently have visiting nurse or other home services: No Alcohol intake: current Alcohol intake frequency: 0-2 drinks per day Alcohol type: beer and hard liquor Patient Tobacco Use Status: Former Tobacco user Tobacco use type: Cigarette e-Cigarette/Vaping Use: Former Use Physical Exam Extrem Other: well healed inc 0-45 deg motion Assessment & Plan Assessment & Plan (1) Proximal humerus fracture: Code(s): S42.209A - Unspecified fracture of upper end of unspecified humerus, initial encounter for closed fracture Category: Medical Plan: cont activity as toelrated. (2) Patellar fracture: Code(s): S82.009A - Unspecified fracture of unspecified patella, initial encounter for closed fracture Category: Medical Qualifiers: Encounter type: initial encounter Fracture alignment: displaced Fracture morphology: transverse Fracture type: closed Laterality: left Qualified Code(s): S82.032A - Displaced transverse fracture of left patella, initial encounter for closed fracture Plan: Progress 10deg/ week and continue wbat with brace locked in ext until 3 month post op. Coding Level of Care Code Global (28598) Diagnoses Proximal humerus fracture S42.209A Patellar fracture S82.032A Encounter type: initial encounter Fracture alignment: displaced Fracture morphology: transverse Fracture type: closed Laterality: left
== END 2024-02-20 10:32 | disposition home or self-care (01) ==
PROVIDERS: Visit Provider Orthopaedic Surgery
DX: S42.209A Unspecified fracture of upper end of unspecified humerus, initial encounter for closed fracture (principal); S82.032A Displaced transverse fracture of left patella, initial encounter for closed fracture
CPT/HCPCS: 99024

== ENCOUNTER → 2024-02-20 09:59 | Outpatient (BNVA) | payer SELFPAY | PROVIDERS: Visit Provider Orthopaedic Surgery | DX: S82.032D Displaced transverse fracture of left patella, subsequent encounter for closed fracture with routine healing (principal) | CPT/HCPCS: 99212 ==